=== PATIENT | female | born 1960 | race Caucasian/White ===

== ENCOUNTER 2021-02-17 14:42 | Emergency (ER) | payer MEDICAID ==
[~2021-02-17] VITALS: Ht 154.9 cm; Wt 108.0 kg
[2021-02-17] MEDS ORDERED: ALEVE220 M1 PO (15:02)
[2021-02-17] MEDS ORDERED: ASA81BEC PO (15:03)
[2021-02-17] MEDS ORDERED: CALCIUM500 MG PO (15:03)
[2021-02-17] MEDS ORDERED: ATIVAN1 M1 PO (15:03)
[2021-02-17] MEDS ORDERED: ZESTRIL40 MG PO (15:04)
[2021-02-17] MEDS ORDERED: POTASSIUM BICARB1 GM PO (15:05)
[2021-02-17] MEDS ORDERED: PROAIR HFA8.5 GM INH ×2 (15:05→15:22)
[2021-02-17] MEDS ORDERED: SYNTHROID50 MCG PO (15:06)
[2021-02-17] MEDS ORDERED: VITAMIN D21250 MCG PO (15:07)
[2021-02-17] MEDS ORDERED: AMITRIPTYLINE H25 M3 PO (15:08)
[2021-02-17] MEDS ORDERED: LISINOPRIL20 MG PO (15:22)
[2021-02-17] MEDS ORDERED: LORAZEPAM 1 MG T1 MG PO (15:22)
[2021-02-17] MEDS ORDERED: AMITRIPTYLINE H25 M4 PO (15:22)
[2021-02-17 15:32] VITALS: BP 177/90
== END 2021-02-17 15:33 | disposition home or self-care (01) ==
LOC: M.ERS 14:42
DX: I10 Essential (primary) hypertension (principal); E03.9 Hypothyroidism, unspecified; M19.90 Unspecified osteoarthritis, unspecified site; F41.0 Panic disorder [episodic paroxysmal anxiety]; G47.30 Sleep apnea, unspecified; Z88.1 Allergy status to other antibiotic agents; Z79.899 Other long term (current) drug therapy; Z76.0 Encounter for issue of repeat prescription

== ENCOUNTER 2021-04-08 14:43 | Emergency (ER) | payer MEDICAID ==
[~2021-04-08] VITALS: Ht 154.9 cm; Wt 114.3 kg
[~2021-04-08 14:43] MED LIST: ALEVE220 M1 PO; AMITRIPTYLINE H25 M3 PO; AMITRIPTYLINE H25 M4 PO; ASA81BEC PO; ATIVAN1 M1 PO; CALCIUM500 MG PO; LISINOPRIL20 MG PO; LORAZEPAM 1 MG T1 MG PO; POTASSIUM BICARB1 GM PO; PROAIR HFA8.5 GM INH; SYNTHROID50 MCG PO; VITAMIN D21250 MCG PO; ZESTRIL40 MG PO
[2021-04-08] MEDS ORDERED: AUGMENTIN 875-1 EACH PO (15:13)
[2021-04-08 15:19] VITALS: BP 197/73
== END 2021-04-08 15:20 | disposition home or self-care (01) ==
LOC: M.ERS 14:43
DX: J01.90 Acute sinusitis, unspecified (principal); M19.90 Unspecified osteoarthritis, unspecified site; M79.7 Fibromyalgia; I10 Essential (primary) hypertension; J45.909 Unspecified asthma, uncomplicated; E03.9 Hypothyroidism, unspecified; Z79.899 Other long term (current) drug therapy; Z79.82 Long term (current) use of aspirin; Z88.8 Allergy status to other drugs, medicaments and biological substances; Z88.1 Allergy status to other antibiotic agents

== ENCOUNTER 2021-04-14 13:36 | Emergency (ER) | payer MEDICAID ==
[~2021-04-14] VITALS: Ht 154.9 cm; Wt 113.4 kg
[~2021-04-14 13:36] MED LIST changes: +AUGMENTIN 875-1 EACH PO
[2021-04-14 13:59] LABS: URINE BILIRUBIN NEGATIVE (Negative); URINE BLOOD TRACE (Negative); URINE CLARITY CLEAR; URINE COLOR YELLOW; URINE GLUCOSE-RANDOM NEGATIVE (Negative); URINE KETONES NEGATIVE (Negative); URINE LEUKOCYTES NEGATIVE (Negative); URINE NITRITE NEGATIVE (Negative); URINE PROTEIN NEGATIVE (Negative); URINE SPECIFIC GRAVITY <= 1.005 (1.005-1.030); URINE UROBILINOGEN 0.2 E.U./dl (0.2-1.0)
[2021-04-14 14:24] LABS: ABSOLUTE LYMPHOCYTES 2.2 thou/uL (0.8-5.3); BASOPHILS 0.4 %; EOSINOPHILS 0.2 %; HEMATOCRIT 42.9 % (37.0-47.0); HEMOGLOBIN 14.9 gm/dL (12.0-15.0); LYMPHOCYTES 24.1 %; MCH 28.4 pg (26.0-34.0); MCHC 34.9 g/dL (28.0-37.0); MCV 81.6 fL (80.0-100.0); MONOCYTES 10.5 %; MPV 7.7 fl. (7.2-11.1); NUCLEATED RBCS 0 /100WBC; PLATELET COUNT* 270 thou/uL (150-400); POLYS 64.8 %; RBC 5.25 mil/uL (4.20-5.00); WBC 9.3 thou/uL (4.0-11.0)
[2021-04-14 14:37] LABS: ALBUMIN 3.7 g/dL (3.4-5.0); CREATININE 0.8 mg/dL (0.6-1.3); POTASSIUM 3.7 mmol/L (3.5-5.1); TOTAL BILIRUBIN 1.7 mg/dL (<0.1-1.0); TOTAL PROTEIN 8.4 g/dL (6.4-8.2)
--- NOTE | 2021-04-14 14:53 | EKG ---
[place] [address] ELECTROCARDIOGRAM REPORT Name: MARIEL MCELROY Room: [facility]#: [id number] Admission: 04/14/21 Attend Phys: Discharge: Date of : 56 Date of Service: 04/14/21 1403 Report #: [id number] THIS REPORT FOR: //name// [facility] ED Test Date: 2021-04-14 Test Time: 14:03:24 Pat Name: MARIEL MCELROY Department: Room: Gender: [employer]: : 1960 Requested By: Rafita Garcia Order Number: [id number] MD: Estuardo Mckenzie Measurements Intervals [place] Rate: 69 P: 17 KS: 144 QRS: -23 QRSD: 101 T: 21 QT: 412 QTc: 442 Interpretive Statements Sinus rhythm Borderline left axis deviation No previous ECG available for comparison Electronically Signed On 04-14-2021 14:52:58 RADIO TECHNICIAN by Estuardo Mckenzie [email or web address] <ELECTRONICALLY SIGNED> By: Estuardo Mckenzie MD, [facility] 04/14/21 1452 D: 12/1402 140 Estuardo Mckenzie MD, FACC /EPI
[2021-04-14 18:46] VITALS: BP 168/63
== END 2021-04-14 18:50 | disposition home or self-care (01) ==
LOC: M.ERS 13:36
PROVIDERS: Emergency Medicine
DX: R10.11 Right upper quadrant pain (principal); M19.90 Unspecified osteoarthritis, unspecified site; M79.7 Fibromyalgia; I10 Essential (primary) hypertension; E03.9 Hypothyroidism, unspecified; J45.909 Unspecified asthma, uncomplicated; Z79.51 Long term (current) use of inhaled steroids; Z79.82 Long term (current) use of aspirin; Z79.899 Other long term (current) drug therapy; Z88.8 Allergy status to other drugs, medicaments and biological substances; Z88.1 Allergy status to other antibiotic agents

== ENCOUNTER 2021-05-31 13:34 | Emergency (ER) | payer MEDICAID ==
[~2021-05-31] VITALS: Ht 154.9 cm; Wt 108.9 kg
[2021-05-31 14:31] LABS: URINE BILIRUBIN NEGATIVE (Negative); URINE BLOOD TRACE (Negative); URINE CLARITY CLEAR; URINE COLOR YELLOW; URINE GLUCOSE-RANDOM NEGATIVE (Negative); URINE KETONES NEGATIVE (Negative); URINE LEUKOCYTES-REFLEX NEGATIVE (Negative); URINE NITRITE-REFLEX NEGATIVE (Negative); URINE PROTEIN 1+ (Negative); URINE SPECIFIC GRAVITY 1.015 (1.005-1.030); URINE UROBILINOGEN 0.2 E.U./dl (0.2-1.0)
[2021-05-31 14:34] LABS: ABSOLUTE LYMPHOCYTES 1.3 thou/uL (0.8-5.3); ABSOLUTE MONOCYTES 0.3 thou/uL (0.0-1.2); ABSOLUTE NEUTROPHILS 3.5 thou/uL (1.6-8.1); BASOPHILS 0.2 %; HEMATOCRIT 41.8 % (37.0-47.0); HEMOGLOBIN 14.2 gm/dL (12.0-15.0); LYMPHOCYTES 25.7 %; MCH 27.9 pg (26.0-34.0); MCV 81.9 fL (80.0-100.0); MONOCYTES 6.4 %; NUCLEATED RBCS 0 /100WBC; PLATELET COUNT* 254 thou/uL (150-400); POLYS 67.7 %; RDW-CV 14.3 % (10.5-14.5); WBC 5.2 thou/uL (4.0-11.0)
[2021-05-31 14:39] LABS: CALCIUM 8.8 mg/dL (8.5-10.1); CREATININE 0.7 mg/dL (0.6-1.3); POTASSIUM 3.9 mmol/L (3.5-5.1)
[2021-05-31 14:47] LABS: ALBUMIN 3.7 g/dL (3.4-5.0); TOTAL PROTEIN 7.8 g/dL (6.4-8.2)
[2021-05-31] MEDS ORDERED: CEPHALEXIN500 MG PO (17:01)
[2021-05-31] MEDS ORDERED: HYDROCODON-ACE1 EAC7 PO (17:01)
[2021-05-31] MEDS ORDERED: ZOFRAN ODT4 MG DISSOLVE (17:01)
[2021-05-31 17:36] VITALS: BP 141/70
== END 2021-05-31 17:37 | disposition home or self-care (01) ==
LOC: M.ERS 13:34
PROVIDERS: Emergency Medicine Emergency Medical Services
DX: R10.31 Right lower quadrant pain (principal); M79.604 Pain in right leg; M19.90 Unspecified osteoarthritis, unspecified site; M79.7 Fibromyalgia; I10 Essential (primary) hypertension; E03.9 Hypothyroidism, unspecified; J45.909 Unspecified asthma, uncomplicated; Z79.51 Long term (current) use of inhaled steroids; Z79.82 Long term (current) use of aspirin; Z79.899 Other long term (current) drug therapy; Z88.5 Allergy status to narcotic agent; Z88.6 Allergy status to analgesic agent; Z88.8 Allergy status to other drugs, medicaments and biological substances